=== PATIENT | male | born 1990 | race Caucasian/White ===

== ENCOUNTER 2023-06-04 19:09 | Emergency (ER) | payer OTHER ==
[2023-06-04 19:43] VITALS: TEMP 98.6
[2023-06-04] MEDS ORDERED: NALOXONE 0.4 MG/ML 1 ML VIAL IM STA (20:11)
--- NOTE | 2023-06-04 20:26 | ED ---
Overdose HPI - General Chief Complaint: Overdose Stated Complaint: Overdose Time Seen by Provider: 06/04/23 19:37 Source: EMS, RN notes reviewed, old records reviewed Mode of arrival: EMS Limitations: no limitations - History of Present Illness Initial Comments: This is a 32-year-old male to the emergency department for evaluation. Patient presents with EMS for opiate overdose. Patient does admit to use today. Patient is given Narcan currently awake alert has no complaints. Patient prefers discharged in the emergency department at this time MD Complaint: accidental overdose -: minutes(s) Context: Intentional Overdose: drug/ETOH problems Context: Accidental Overdose: wanted to get high Treatments Prior to Arrival: oxygen, narcan - Related Data Allergies Allergy/AdvReac Type Severity Reaction Status Date / Time No Known Allergies Allergy Verified 06/04/23 19:20 Review of Systems ROS Statement: Those systems with pertinent positive or pertinent negative responses have been documented in the HPI. ROS Other: All systems not noted in ROS Statement are negative. Past Medical History Past Medical History: No Reported History History of Any Multi-Drug Resistant Organisms: None Reported Past Surgical History: No Surgical Hx Reported Past Psychological History: Depression Smoking Status: Current every day smoker Past Alcohol Use History: Occasional Past Drug Use History: Heroin, IV Drug Use General Exam Limitations: no limitations General appearance: alert, in no apparent distress, anxious Head exam: Present: atraumatic, normocephalic, normal inspection Eye exam: Present: normal appearance, PERRL, EOMI. Absent: scleral icterus, conjunctival injection, periorbital swelling ENT exam: Present: normal exam, mucous membranes moist Neck exam: Present: normal inspection. Absent: tenderness, meningismus, lymphadenopathy Respiratory exam: Present: normal lung sounds bilaterally. Absent: respiratory distress, wheezes, rales, rhonchi, stridor Cardiovascular Exam: Present: regular rate, normal rhythm, normal heart sounds. Absent: systolic murmur, diastolic murmur, rubs, gallop, clicks GI/Abdominal exam: Present: soft, normal bowel sounds. Absent: distended, tenderness, guarding, rebound, rigid Extremities exam: Present: normal inspection, full ROM, normal capillary refill. Absent: tenderness, pedal edema, joint swelling, calf tenderness Back exam: Present: normal inspection Neurological exam: Present: alert, oriented X3, CN II-XII intact Psychiatric exam: Present: normal affect, normal mood Skin exam: Present: warm, dry, intact, normal color. Absent: rash Course Vital Signs 06/04/23 06/04/23 06/05/23 19:09 19:25 00:41 Temperature 98.6 F 98.6 F Pulse Rate 108 H 108 H Respiratory 12 12 12 Rate Blood Pressure 141/85 141/85 O2 Sat by Pulse 98 98 Oximetry 06/05/23 06:04 Temperature 98.6 F Pulse Rate 87 Respiratory 18 Rate Blood Pressure 132/82 O2 Sat by Pulse 100 Oximetry - Reevaluation(s) Reevaluation #1: Medical records reviewed Reevaluation #2: Patient remains awake alert here in the ER Reevaluation #3: patient informed results questions answered Medical Decision Making - Medical Decision Making 32 male to the ER for evaluation of overdose, opiate overdose accidental prior to arrival. Results of results resolved. Patient has no complaints here in the ER and can be discharged home Disposition Clinical Impression: Drug overdose Disposition: HOME SELF-CARE Condition: Good Instructions (If sedation given, give patient instructions): Adult Overdose (ED) Is patient prescribed a controlled substance at d/c from ED?: No Referrals: None,Stated [Primary Care Provider] - 1-2 days Time of Disposition: 20:20
[2023-06-05 06:15] VITALS: BP 132/82; PULSE 87; RESP 18
== END 2023-06-05 06:05 | disposition home or self-care (01) ==
LOC: EDBD → EC 19:09
DX: T40.1X1A Poisoning by heroin, accidental (unintentional), initial encounter (principal); F17.200 Nicotine dependence, unspecified, uncomplicated; Z86.59 Personal history of other mental and behavioral disorders
CPT/HCPCS: 99284